=== PATIENT | female | born 1980 | race Caucasian/White ===

== ENCOUNTER 2022-03-08 09:17 | Outpatient (CLI) | payer BC, SELFPAY ==
[2022-03-08 13:54] LABS: Albumin* 4.4 g/dL (3.3-5.0); Chloride* 103 mmol/L (96-114); Potassium* 4.5 mmol/L (3.6-5.1); Sodium* 138 mmol/L (135-149)
[2022-03-08 13:56] LABS: Alanine Aminotransferase* 16 U/L (4-35); Alkaline Phosphatase* 78 U/L (40-150); Aspartate Amino Transferase* 21 U/L (12-35); Bilirubin Total* 1.1 mg/dL (0.1-1.5); Blood Urea Nitrogen* 14 mg/dL (5-24); Carbon Dioxide* 27 mmol/L (20-32); Cholesterol* 244 mg/dL (90-199); Creatinine* 0.8 mg/dL (0.5-1.5); Estimated Glomerular Filt Rate 94 ml/min; Glucose* 103 mg/dL (60-115); Total Protein* 7.2 g/dL (6.0-8.3)
[2022-03-08 13:57] LABS: Calcium* 9.7 mg/dL (8.4-10.6); HDL Cholesterol* 53 mg/dL (>=50); LDL Cholesterol Calculated 160 mg/dL (<100); Triglycerides* 155 mg/dL (40-149)
[2022-03-08 14:45] LABS: Vitamin B12* 269 pg/mL (243-894)
== END 2022-03-08 09:18 | disposition home or self-care (01) ==
PROVIDERS: PCP Physician Assistant Medical; Visit Provider Physician Assistant Medical
DX: Z01.419 Encounter for gynecological examination (general) (routine) without abnormal findings (principal); R53.82 Chronic fatigue, unspecified; E78.5 Hyperlipidemia, unspecified; G43.909 Migraine, unspecified, not intractable, without status migrainosus; Z13.6 Encounter for screening for cardiovascular disorders
CPT/HCPCS: 80053; 80061; 82607; 84443

== ENCOUNTER 2023-07-20 12:39 | Outpatient (CLI) | payer BC, SELFPAY | END 2023-07-20 12:40 | disposition home or self-care (01) | PROVIDERS: PCP Physician Assistant Medical; Visit Provider Physician Assistant Medical | DX: R00.2 Palpitations (principal); R07.9 Chest pain, unspecified | CPT/HCPCS: 93306 ==

== ENCOUNTER 2024-06-09 12:55 | Outpatient (CLI) | payer BC, SELFPAY ==
--- NOTE | 2024-06-09 13:00 | CRLHL7_ITS ---
For Patients: As a result of the Century Cures Act, medical imaging exams and procedure reports are released immediately into your electronic medical record. You may view this report before your referring provider. If you have questions, please contact your health care provider. INDICATION: Leg pain and swelling. TECHNIQUE: Ultrasound venous duplex lower right extremity. Compression venous exam was performed using young-scale, color Doppler, and spectral Doppler analysis. COMPARISON: None. FINDINGS: Deep veins: Sonographic imaging demonstrates the right common femoral, deep femoral, superficial femoral, popliteal, posterior tibial and the contralateral right common femoral veins to be fully compressible with normal color Doppler blood flow. Superficial veins: Greater saphenous vein is fully compressible. No popliteal cyst. IMPRESSION: Normal right lower extremity venous ultrasound, no sign of deep venous thrombosis. Dictated by Lang Van MD @ 06/09/2024 1:46:10 PM (Electronically Signed)
== END 2024-06-09 12:56 | disposition home or self-care (01) ==
PROVIDERS: PCP Physician Assistant Medical; Visit Provider Family Medicine
DX: M79.604 Pain in right leg (principal); R22.41 Localized swelling, mass and lump, right lower limb; L98.9 Disorder of the skin and subcutaneous tissue, unspecified
CPT/HCPCS: 93971

== ENCOUNTER 2024-07-24 15:24 | Outpatient (CLI) | payer BC, SELFPAY ==
--- NOTE | 2024-07-24 15:45 | CRLHL7_ITS ---
For Patients: As a result of the Century Cures Act, medical imaging exams and procedure reports are released immediately into your electronic medical record. You may view this report before your referring provider. If you have questions, please contact your health care provider. Indication: Right ankle redness and swelling. Possible cellulitis or abscess. Technique: Ultrasound examination of the area of swelling in the medial right ankle is performed with a high-resolution linear transducer. Comparison: None available Findings: There is swelling and mild edema in the medial aspect of the right ankle. There is slightly increased color Doppler flow consistent with hyperemia. Findings are most consistent with cellulitis. There is no sign of any mass or fluid collection. Impression: 1. Swelling of the medial right ankle with minimal edema and mildly increased vascularity. This is most consistent with cellulitis. 2. No sign of any mass or abscess. Dictated by Kojo Gardner MD @ 07/25/2024 10:02:39 PM (Electronically Signed)
== END 2024-07-24 15:25 | disposition home or self-care (01) ==
LOC: US 15:24
PROVIDERS: PCP Physician Assistant Medical; Visit Provider Surgery
DX: L03.119 Cellulitis of unspecified part of limb (principal); L98.9 Disorder of the skin and subcutaneous tissue, unspecified
CPT/HCPCS: 76882

== ENCOUNTER 2024-07-31 12:58 | Outpatient (CLI) | payer BC, SELFPAY ==
[2024-07-31 14:47] LABS: Basophils Absolute Auto 0.02 K/uL (0.00-0.30); Basophils Percent Auto 0.3 % (0.0-3.0); Eosinophils Absolute Auto 0.11 K/uL (0.00-0.50); Eosinophils Percent Auto 1.5 % (0.0-7.0); Hematocrit 40.4 % (33.0-51.0); Hemoglobin* 13.1 gm/dL (12.0-16.0); Lymphocytes Absolute Auto 2.33 K/uL (0.90-2.90); Lymphocytes Percent Auto 30.9 % (20-44); Mean Corpuscular HGB Conc 32 gm/dL (32-36); Mean Corpuscular Hemoglobin 29 pg (26-34); Mean Corpuscular Volume 91 fL (80-100); Neutrophils Absolute Auto 4.63 K/uL (1.7-7.0); Neutrophils Percent Auto 61.3 % (42.0-72.0); Platelet Count* 339 K/uL (140-440); RDW Coefficient of Variation % 12.7 % (11.5-15.5); Red Blood Count 4.46 m/uL (4.00-5.20); White Blood Count* 7.54 K/uL (4.50-11.00)
[2024-07-31 14:49] LABS: Slide Review Reflex No
[2024-07-31 15:12] LABS: Albumin* 4.5 g/dL (3.3-5.0); Chloride* 103 mmol/L (96-114); Sodium* 141 mmol/L (135-149)
[2024-07-31 15:13] LABS: Potassium* 3.7 mmol/L (3.6-5.1)
[2024-07-31 15:15] LABS: Alanine Aminotransferase* 17 U/L (4-35); Alkaline Phosphatase* 77 U/L (40-150); Anion Gap 8 mEq/L (7-15); Aspartate Amino Transferase* 18 U/L (12-35); Bilirubin Total* 0.8 mg/dL (0.1-1.5); Blood Urea Nitrogen* 9 mg/dL (5-24); Carbon Dioxide* 30 mmol/L (20-32); Creatinine* 0.7 mg/dL (0.5-1.5); Estimated Glomerular Filt Rate 109 ml/min; Total Protein* 7.5 g/dL (6.0-8.3)
[2024-07-31 15:16] LABS: Glucose* 97 mg/dL (60-115)
[2024-07-31 15:24] LABS: C Reactive Protein* < 0.5 mg/dL (0.5-1.0)
== END 2024-07-31 12:59 | disposition home or self-care (01) ==
LOC: WOUND 13:00
PROVIDERS: PCP Physician Assistant Medical; Visit Provider Nurse Practitioner Family
DX: B42.1 Lymphocutaneous sporotrichosis (principal); L03.115 Cellulitis of right lower limb
CPT/HCPCS: 36415; 80053; 85025; 86140; G0463

== ENCOUNTER 2024-08-14 10:13 | Outpatient (CLI) | payer BC, SELFPAY | END 2024-08-14 10:14 | disposition home or self-care (01) | LOC: WOUND 10:13 | PROVIDERS: PCP Physician Assistant Medical; Visit Provider Nurse Practitioner Family | DX: B42.1 Lymphocutaneous sporotrichosis (principal); L03.115 Cellulitis of right lower limb | CPT/HCPCS: G0463 ==

== ENCOUNTER 2024-09-22 14:30 | Outpatient (CLI) | payer BC, SELFPAY ==
[2024-09-22 22:51] LABS: C Reactive Protein* 1.1 mg/dL (0.5-1.0)
[2024-09-22 23:01] LABS: Basophils Absolute Auto 0.03 K/uL (0.00-0.30); Basophils Percent Auto 0.3 % (0.0-3.0); Eosinophils Absolute Auto 0.15 K/uL (0.00-0.50); Eosinophils Percent Auto 1.7 % (0.0-7.0); Hematocrit 39.2 % (33.0-51.0); Hemoglobin* 12.6 gm/dL (12.0-16.0); Immature Granulocytes Abs Auto 0.01 K/uL (0.00-0.30); Immature Granulocytes Pct Auto 0.1 %; Lymphocytes Percent Auto 32.2 % (20-44); Mean Corpuscular HGB Conc 32 gm/dL (32-36); Mean Corpuscular Hemoglobin 29 pg (26-34); Mean Corpuscular Volume 91 fL (80-100); Monocytes Percent Auto 6.2 % (0.0-11.0); Neutrophils Absolute Auto 5.17 K/uL (1.7-7.0); Neutrophils Percent Auto 59.5 % (42.0-72.0); Platelet Count* 363 K/uL (140-440); RDW Coefficient of Variation % 12.8 % (11.5-15.5); Red Blood Count 4.29 m/uL (4.00-5.20)
[2024-09-22 23:06] LABS: Slide Review Reflex No
[2024-09-22 23:10] LABS: HCG Quantitative* < 2.39 mIU/mL
[2024-09-24 12:34] LABS: Streptolysin O Antibody 94 IU/mL (<=330)
[2024-09-25 00:46] LABS: QuantiFERON Mitogen minus NIL 9.85 IU/mL; QuantiFERON NIL 0.15 IU/mL; Quantiferon Plus TB1 minus NIL 0.02 IU/mL (<=0.34); Quantiferon Plus TB2 minus NIL 0.05 IU/mL (<=0.34); Quantiferon TB Gold Plus Negative (Negative)
== END 2024-09-22 14:31 | disposition home or self-care (01) ==
LOC: NPINS 14:33
PROVIDERS: PCP Physician Assistant Medical; Visit Provider Dermatology
DX: L52 Erythema nodosum (principal)
CPT/HCPCS: 84702; 85025; 86060; 86140; 86480

== ENCOUNTER 2024-12-16 15:55 | Outpatient (CLI) | payer BC, SELFPAY ==
--- NOTE | 2024-12-16 16:00 | CRLHL7_ITS ---
For Patients: As a result of the Century Cures Act, medical imaging exams and procedure reports are released immediately into your electronic medical record. You may view this report before your referring provider. If you have questions, please contact your health care provider. INDICATION: unspecified abdominal pain COMPARISON: 01/30/2019 TECHNIQUE: 2D young scale and color Doppler images were acquired of the pelvis using a transabdominal and transvaginal approach. FINDINGS: Right posterior calcified fibroid is present which measures 1.9 x 1.1 x 1.2 cm. Partially calcified fibroid is present within the right uterine fundus measuring 2.4 x 3.0 x 2.8 cm. Uterus measures 10.8 cm in length by 5.7 cm in AP diameter by 6.5 cm in transverse dimension. The endometrial lining measures 6.3 mm in composite thickness. The right ovary measures 3.2 x 1.5 x 1.9 cm in size and the left ovary measures 3.1 x 1.6 x 1.7 cm. The ovaries demonstrate normal arterial and venous blood flow on color Doppler analysis. There are no suspicious fluid collections within the cul-de-sac. Collapsing hemorrhagic cyst incidentally noted on the left which measures 1.4 x 1.7 x 1.5 cm. IMPRESSION: Collapsing hemorrhagic left ovarian cyst measures 1.4 x 1.7 x 1.5 cm. Uterine fibroids measuring 3.0 cm and 1.9 cm. Dictated by Raz Puente MD @ 12/16/2024 10:19:26 PM (Electronically Signed)
== END 2024-12-16 15:56 | disposition home or self-care (01) ==
LOC: US 15:56
PROVIDERS: PCP Physician Assistant Medical
DX: R10.9 Unspecified abdominal pain (principal); D25.9 Leiomyoma of uterus, unspecified
CPT/HCPCS: 76830; 76856; 93976

== ENCOUNTER 2024-12-26 12:53 | Outpatient (CLI) | payer BC, SELFPAY ==
--- NOTE | 2024-12-26 13:00 | CRLHL7_ITS ---
For Patients: As a result of the Century Cures Act, medical imaging exams and procedure reports are released immediately into your electronic medical record. You may view this report before your referring provider. If you have questions, please contact your health care provider. INDICATION: Right lower abdominal pain TECHNIQUE: Axial images were obtained from the diaphragm to the pubic symphysis. Reformats were obtained in the coronal and sagittal plane. IV Contrast: None Oral Contrast: None COMPARISON: None. FINDINGS: Lower chest: Unremarkable. Liver: Unremarkable. Normal in size and attenuation. No masses. Gallbladder and bile ducts: Unremarkable. No stones or inflammation. No biliary dilatation. Spleen: Unremarkable. Normal in size without mass. Pancreas: Unremarkable. No mass or inflammation. Adrenal glands: Unremarkable. No nodules. Kidneys: Unremarkable. No masses, stones, or hydronephrosis. Vasculature: Unremarkable. GI tract: The stomach is unremarkable. No dilated loops of large or small intestine. Unremarkable appendix. Pelvis: Anteverted uterus with some calcification at the fundus, likely part of a calcified fibroid. No adnexal masses. Bones: Unremarkable for age. IMPRESSION: 1. No evidence of nephrolithiasis or hydronephrosis. 2. No dilated bowel or localized inflammation 3. Calcification at the uterine fundus, likely part of a calcified fibroid. Please note that all CT scans at this facility use dose modulation, iterative reconstruction, and/or weight-based dosing when appropriate to reduce radiation dose to as low as reasonably achievable. Dictated by Dale Shook MD @ 12/26/2024 1:19:21 PM (Electronically Signed)
== END 2024-12-26 12:54 | disposition home or self-care (01) ==
LOC: CT 12:53
PROVIDERS: PCP Physician Assistant Medical; Visit Provider Physician Assistant Medical
DX: R10.31 Right lower quadrant pain (principal); N85.8 Other specified noninflammatory disorders of uterus
CPT/HCPCS: 74176